=== PATIENT | female | born 1960 | race Caucasian/White ===

== ENCOUNTER → 2016-03-03 | Outpatient (CLI) | payer BC ==
[~2016-03-03] VITALS: Ht 170.2 cm; Wt 106.8 kg
[~2016-03-03] MED LIST: ADVIL200 MG PO; ASPIRIN E.C. 8181 MG PO; Advil; BENICAR20 MG PO; CALCIFEROL50000 IU PO; CANA300T PO; CIPRO 500MG TA500 MG PO; GLUCOPHAGE1000 MG PO; LAMISIL250 M1 PO; LAMISIL250 MG PO; LIPITOR 10MG10 MG PO; PHENTERMINE15 MG PO; SUPER EPA 1201200 MG PO; TYLENOL ARTHRI650 M1 PO; Tylenol; VICTOZA6 MG/ML SC; VITAMIN D31000 IU PO; VITAMIN D50000 I1 PO; WELLBUTRIN XL150 MG PO; victoza SQ
[2016-03-03 09:13] VITALS: BP 140/56; PULSE 81
[2016-03-03 09:38] VITALS: BP 140/56; PULSE 81
== END ==
LOC: LIGHT 09:00
DX: E88.81 Metabolic syndrome and other insulin resistance (principal); E78.4 Other hyperlipidemia; E66.09 Other obesity due to excess calories; Z68.36 Body mass index [BMI] 36.0-36.9, adult; E11.9 Type 2 diabetes mellitus without complications

== ENCOUNTER → 2016-04-07 | Outpatient (CLI) | payer BC ==
[~2016-04-07] VITALS: Ht 170.2 cm; Wt 108.2 kg
[2016-04-07 08:56] VITALS: BP 119/35; PULSE 74
[2016-04-07 09:59] VITALS: BP 119/35; PULSE 74
== END ==
LOC: LIGHT 08:45
DX: E88.81 Metabolic syndrome and other insulin resistance (principal); E78.4 Other hyperlipidemia; E11.9 Type 2 diabetes mellitus without complications; E66.09 Other obesity due to excess calories; Z68.37 Body mass index [BMI] 37.0-37.9, adult

== ENCOUNTER → 2016-04-11 | Outpatient (CLI) | payer BC | LOC: SUN.DIA 11:45 | DX: E11.9 Type 2 diabetes mellitus without complications (principal); E66.9 Obesity, unspecified; Z68.37 Body mass index [BMI] 37.0-37.9, adult; Z71.3 Dietary counseling and surveillance; E78.5 Hyperlipidemia, unspecified; I73.9 Peripheral vascular disease, unspecified ==

== ENCOUNTER → 2016-05-19 | Outpatient (CLI) | payer BC ==
[~2016-05-19] VITALS: Ht 170.2 cm; Wt 108.9 kg
[2016-05-19 13:08] VITALS: BP 124/54; PULSE 101
== END ==
LOC: LIGHT 10:15
DX: E88.81 Metabolic syndrome and other insulin resistance (principal); E78.4 Other hyperlipidemia; E66.8 Other obesity; Z68.37 Body mass index [BMI] 37.0-37.9, adult; E11.9 Type 2 diabetes mellitus without complications; Z90.49 Acquired absence of other specified parts of digestive tract

== ENCOUNTER → 2016-06-30 | Outpatient (CLI) | payer BC | LOC: BHSO 10:53 | DX: F41.1 Generalized anxiety disorder (principal) ==

== ENCOUNTER → 2016-06-30 | Outpatient (CLI) | payer BC ==
[~2016-06-30] VITALS: Ht 170.2 cm; Wt 107.7 kg
[2016-06-30 09:30] VITALS: BP 110/80; PULSE 88
== END ==
LOC: LIGHT 09:30
DX: E88.81 Metabolic syndrome and other insulin resistance (principal); E78.5 Hyperlipidemia, unspecified; E66.9 Obesity, unspecified; Z68.37 Body mass index [BMI] 37.0-37.9, adult; Z71.3 Dietary counseling and surveillance; E11.9 Type 2 diabetes mellitus without complications

== ENCOUNTER → 2016-08-17 | Outpatient (CLI) | payer BC | LOC: BHSO 14:58 | DX: F41.1 Generalized anxiety disorder (principal) ==

== ENCOUNTER → 2016-08-25 | Outpatient (CLI) | payer BC | LOC: BHSO 08:59 | DX: F41.1 Generalized anxiety disorder (principal) ==

== ENCOUNTER → 2016-08-25 | Outpatient (CLI) | payer BC ==
[~2016-08-25] VITALS: Ht 170.2 cm; Wt 109.8 kg
[2016-08-25 10:16] VITALS: BP 105/50; PULSE 92
== END ==
LOC: LIGHT 10:15
DX: E88.81 Metabolic syndrome and other insulin resistance (principal); E78.5 Hyperlipidemia, unspecified; E66.9 Obesity, unspecified; Z68.37 Body mass index [BMI] 37.0-37.9, adult; Z71.3 Dietary counseling and surveillance; E11.9 Type 2 diabetes mellitus without complications

== ENCOUNTER → 2016-09-29 | Outpatient (CLI) | payer BC ==
[~2016-09-29] MED LIST changes: +RELAFEN 50500 MG/TAB PO
== END ==
LOC: SUN.DIA
DX: E11.51 Type 2 diabetes mellitus with diabetic peripheral angiopathy without gangrene (principal); E78.5 Hyperlipidemia, unspecified; E66.9 Obesity, unspecified; Z68.37 Body mass index [BMI] 37.0-37.9, adult; Z71.3 Dietary counseling and surveillance

== ENCOUNTER → 2016-09-29 | Outpatient (CLI) | payer BC ==
[~2016-09-29] MED LIST changes: -RELAFEN 50500 MG/TAB PO
== END ==
LOC: BHSO 11:03
DX: F41.1 Generalized anxiety disorder (principal)

== ENCOUNTER → 2016-10-20 | Outpatient (CLI) | payer BC ==
[~2016-10-20] VITALS: Ht 170.2 cm; Wt 111.4 kg
[2016-10-20 09:29] VITALS: BP 124/76; PULSE 60
== END ==
LOC: LIGHT 08:51
DX: E88.81 Metabolic syndrome and other insulin resistance (principal); E78.5 Hyperlipidemia, unspecified; E66.9 Obesity, unspecified; Z68.38 Body mass index [BMI] 38.0-38.9, adult; Z71.3 Dietary counseling and surveillance; E11.9 Type 2 diabetes mellitus without complications

== ENCOUNTER → 2016-10-25 | Outpatient (CLI) | payer BC ==
[~2016-10-25] MED LIST changes: +RELAFEN 50500 MG/TAB PO
== END ==
LOC: BHSO 08:56
DX: F41.1 Generalized anxiety disorder (principal)

== ENCOUNTER → 2016-12-08 | Outpatient (CLI) | payer BC ==
[~2016-12-08] VITALS: Ht 170.2 cm; Wt 111.1 kg
[~2016-12-08] MED LIST changes: -RELAFEN 50500 MG/TAB PO
[2016-12-08 10:16] VITALS: BP 124/80; PULSE 76
== END ==
LOC: LIGHT 09:51
DX: E88.81 Metabolic syndrome and other insulin resistance (principal); E78.5 Hyperlipidemia, unspecified; E66.9 Obesity, unspecified; Z68.38 Body mass index [BMI] 38.0-38.9, adult; Z71.3 Dietary counseling and surveillance; E11.9 Type 2 diabetes mellitus without complications

== ENCOUNTER → 2016-12-27 | Outpatient (CLI) | payer BC | LOC: BHSO 08:55 | DX: F41.1 Generalized anxiety disorder (principal) ==

== ENCOUNTER → 2017-01-19 | Outpatient (CLI) | payer BC ==
[~2017-01-19] VITALS: Ht 170.2 cm; Wt 109.8 kg
[2017-01-19 11:06] VITALS: BP 120/84; PULSE 84
== END ==
LOC: LIGHT 10:35
DX: E88.81 Metabolic syndrome and other insulin resistance (principal); E78.5 Hyperlipidemia, unspecified; E66.9 Obesity, unspecified; Z68.37 Body mass index [BMI] 37.0-37.9, adult; Z71.3 Dietary counseling and surveillance; E11.9 Type 2 diabetes mellitus without complications

== ENCOUNTER → 2017-02-16 | Outpatient (CLI) | payer BC ==
[~2017-02-16] VITALS: Ht 170.2 cm; Wt 107.7 kg
[2017-02-16 08:39] VITALS: BP 112/80; PULSE 88
== END ==
LOC: LIGHT 08:32
DX: E88.81 Metabolic syndrome and other insulin resistance (principal); E78.5 Hyperlipidemia, unspecified; E66.9 Obesity, unspecified; Z68.37 Body mass index [BMI] 37.0-37.9, adult; Z71.3 Dietary counseling and surveillance; E11.9 Type 2 diabetes mellitus without complications
CPT/HCPCS: G0463

== ENCOUNTER → 2017-05-04 | Outpatient (CLI) | payer BC | LOC: SUN.DIA 08:25 | DX: E11.9 Type 2 diabetes mellitus without complications (principal); E78.5 Hyperlipidemia, unspecified; E66.9 Obesity, unspecified; Z68.36 Body mass index [BMI] 36.0-36.9, adult; Z71.3 Dietary counseling and surveillance | CPT/HCPCS: G0108 ==

== ENCOUNTER → 2017-05-04 | Outpatient (CLI) | payer BC ==
[~2017-05-04] VITALS: Ht 170.2 cm; Wt 106.1 kg
[2017-05-04 09:41] VITALS: BP 118/70; PULSE 60
[2017-05-04 10:04] VITALS: BP 118/70; PULSE 60
== END ==
LOC: LIGHT 03-23 08:57
DX: E88.81 Metabolic syndrome and other insulin resistance (principal); E78.5 Hyperlipidemia, unspecified; E66.9 Obesity, unspecified; Z68.36 Body mass index [BMI] 36.0-36.9, adult; Z71.3 Dietary counseling and surveillance; E11.9 Type 2 diabetes mellitus without complications
CPT/HCPCS: G0463

== ENCOUNTER → 2017-07-13 | Outpatient (CLI) | payer BC ==
[~2017-07-13] VITALS: Ht 170.2 cm; Wt 107.5 kg
[2017-07-13 09:06] VITALS: BP 116/84; PULSE 72
== END ==
LOC: LIGHT 08:51
DX: E88.81 Metabolic syndrome and other insulin resistance (principal); E78.5 Hyperlipidemia, unspecified; E66.9 Obesity, unspecified; Z68.37 Body mass index [BMI] 37.0-37.9, adult; Z71.3 Dietary counseling and surveillance; E11.9 Type 2 diabetes mellitus without complications
CPT/HCPCS: G0463

== ENCOUNTER → 2017-08-31 | Outpatient (CLI) | payer BC ==
[~2017-08-31] VITALS: Ht 170.2 cm; Wt 107.5 kg
[2017-08-31 10:07] VITALS: BP 108/70; PULSE 68
== END ==
LOC: LIGHT 09:50
DX: E88.81 Metabolic syndrome and other insulin resistance (principal); E78.5 Hyperlipidemia, unspecified; E66.9 Obesity, unspecified; Z68.37 Body mass index [BMI] 37.0-37.9, adult; Z71.3 Dietary counseling and surveillance; E11.9 Type 2 diabetes mellitus without complications
CPT/HCPCS: G0463

== ENCOUNTER → 2017-10-26 | Outpatient (CLI) | payer BC ==
[~2017-10-26] VITALS: Ht 170.2 cm; Wt 108.2 kg
[2017-10-26 09:04] VITALS: BP 112/82; PULSE 80
== END ==
LOC: LIGHT 09-07 15:47
DX: E88.81 Metabolic syndrome and other insulin resistance (principal); E78.5 Hyperlipidemia, unspecified; E11.9 Type 2 diabetes mellitus without complications; E66.9 Obesity, unspecified; Z68.37 Body mass index [BMI] 37.0-37.9, adult; Z71.3 Dietary counseling and surveillance
CPT/HCPCS: G0463

== ENCOUNTER → 2017-11-07 | Outpatient (CLI) | payer BC | LOC: SUN.DIA 03-23 09:03 | DX: E11.9 Type 2 diabetes mellitus without complications (principal); E78.5 Hyperlipidemia, unspecified; E66.9 Obesity, unspecified | CPT/HCPCS: G0108 ==

== ENCOUNTER → 2017-12-14 | Outpatient (CLI) | payer BC ==
[~2017-12-14] VITALS: Ht 170.2 cm; Wt 105.9 kg
[2017-12-14 10:01] VITALS: BP 104/66; PULSE 80
== END ==
LOC: LIGHT 09:40
DX: E88.81 Metabolic syndrome and other insulin resistance (principal); E78.5 Hyperlipidemia, unspecified; E11.9 Type 2 diabetes mellitus without complications; E66.9 Obesity, unspecified; Z68.36 Body mass index [BMI] 36.0-36.9, adult; Z71.3 Dietary counseling and surveillance
CPT/HCPCS: G0463

== ENCOUNTER → 2018-04-05 | Outpatient (CLI) | payer BC ==
[~2018-04-05] VITALS: Ht 170.2 cm; Wt 107.3 kg
[~2018-04-05] MED LIST changes: +RELAFEN 50500 MG/TAB PO
[2018-04-05 09:56] VITALS: BP 102/76; PULSE 72
== END ==
LOC: LIGHT 02-22 11:43
DX: E88.81 Metabolic syndrome and other insulin resistance (principal); E78.5 Hyperlipidemia, unspecified; E11.65 Type 2 diabetes mellitus with hyperglycemia; E66.9 Obesity, unspecified; Z68.37 Body mass index [BMI] 37.0-37.9, adult; Z71.3 Dietary counseling and surveillance
CPT/HCPCS: G0463

== ENCOUNTER → 2018-05-08 | Outpatient (CLI) | payer BC | LOC: SUN.DIA 08:14 | DX: E11.9 Type 2 diabetes mellitus without complications (principal); E78.5 Hyperlipidemia, unspecified; E66.9 Obesity, unspecified | CPT/HCPCS: G0108 ==

== ENCOUNTER → 2018-06-07 | Outpatient (CLI) | payer BC ==
[~2018-06-07] VITALS: Ht 170.2 cm; Wt 109.3 kg
[2018-06-07 09:10] VITALS: BP 130/64; PULSE 72
== END ==
LOC: LIGHT 08:48
DX: E88.81 Metabolic syndrome and other insulin resistance (principal); E78.5 Hyperlipidemia, unspecified; E11.9 Type 2 diabetes mellitus without complications; E66.9 Obesity, unspecified; Z68.37 Body mass index [BMI] 37.0-37.9, adult; Z71.3 Dietary counseling and surveillance
CPT/HCPCS: G0463

== ENCOUNTER → 2018-07-19 | Outpatient (CLI) | payer BC ==
[~2018-07-19] VITALS: Ht 170.2 cm; Wt 106.8 kg
[2018-07-19 09:29] VITALS: BP 124/76; PULSE 72
== END ==
LOC: LIGHT 09:08
DX: E88.81 Metabolic syndrome and other insulin resistance (principal); E78.5 Hyperlipidemia, unspecified; E11.65 Type 2 diabetes mellitus with hyperglycemia; E66.9 Obesity, unspecified; Z68.36 Body mass index [BMI] 36.0-36.9, adult; Z71.3 Dietary counseling and surveillance
CPT/HCPCS: G0463

== ENCOUNTER → 2018-11-08 | Outpatient (CLI) | payer BC ==
[~2018-11-08] VITALS: Ht 170.2 cm; Wt 106.8 kg
[2018-11-08 15:11] VITALS: BP 110/80; PULSE 100
== END ==
LOC: LIGHT 09-13 11:34
DX: E88.81 Metabolic syndrome and other insulin resistance (principal); E78.5 Hyperlipidemia, unspecified; E11.9 Type 2 diabetes mellitus without complications; E66.9 Obesity, unspecified; Z68.36 Body mass index [BMI] 36.0-36.9, adult; Z71.3 Dietary counseling and surveillance
CPT/HCPCS: G0463